=== PATIENT | male | born 1985 | race Caucasian/White ===

== ENCOUNTER 2021-02-17 19:41 | Emergency (ER) | payer MEDICAID, SELFPAY ==
--- NOTE | 2021-02-17 19:47 | XRR_ITS ---
PROCEDURE INFORMATION: Exam: XR Right Ankle Exam date and time: 02/17/2021 7:47 PM Age: 36 years old Clinical indication: Pain; Ankle; Right; Additional info: Injury TECHNIQUE: Imaging protocol: XR Right ankle. Views: 3 or more views. COMPARISON: No relevant prior studies available. FINDINGS: Bones/joints: There is a nondisplaced fracture of the medial malleolus. No additional acute fracture of the tibial and no acute fracture of the fibula. The ankle mortise is intact. No dislocation. Soft tissues: There is soft tissue edema. XR/XR ankle RT min 3V* 03900 IMPRESSION: There is a nondisplaced fracture of the medial malleolus.
[2021-02-17 20:27] VITALS: BP 137/85; PULSE 77; RESP 16; TEMP 37; O2SAT 98
--- NOTE | 2021-02-17 21:20 | ED_ITS ---
HPI - Extremity Problem General: Chief complaint: Extremity Injury, Lower Stated complaint: Injury Rt Tamika Time Seen by Provider: 02/17/21 20:17 History of Present Illness: HPI Narrative: Patient comes in with injury to the left ankle this evening. Patient was climbing in a tree and went to get out of the tree and fell coming down awkwardly on his right foot and ankle. Patient reports pain and discomfort to the ankle. Review of Systems General: Reports: 10 or more systems reviewed and unremarkable except in HPI and below Musc: Reports: joint pain and other (Right ankle injury) Physical Exam Const: COMMON NORMALS: patient oriented x3 GENERAL APPEARANCE: cooperative HENMT: COMMON NORMALS: normocephalic and Normal external nose present HEAD & SCALP: normocephalic NOSE: Normal external nose present Eye: GENERAL EYE: appearance normal, both eyes and all related structures Neck/C-Spine: COMMON NORMALS: full ROM Chest: COMMONS NORMALS: normal inspection of the chest Resp: COMMON NORMALS: normal respiratory effort EFFORT & INSPECTION: Yes able to speak in complete sentences Cardio: COMMON NORMALS: regular rate and regular rhythm RATE: regular rate RHYTHM: regular rhythm GI: COMMON NORMALS: non-tender Back/Pelvis: COMMON NORMALS: thoracic and lumbar spine normal to inspection Extremity: NARRATIVE EXTREMITY EXAM: Tenderness is noted to the medial aspect of the right ankle. RIGHT LOWER EXTREMITY: Yes foot & digits Right ankle: Yes inspection (Swelling) and Yes palpation (Medial ankle) Neuro: COMMON NORMALS: patient oriented x3 and moves all extremities Psych: COMMON NORMALS: mental status grossly normal and cooperative Skin: COMMON NORMALS: no rashes or lesions noted GENERAL SKIN EXAM: no rashes or lesions noted Course Vital Signs: Vital signs: Vital Signs Temperature 98.6 F 02/17/21 20:27 Pulse Rate 77 02/17/21 20:27 Respiratory Rate 16 02/17/21 20:27 Blood Pressure 137/85 02/17/21 20:27 Pulse Oximetry 98 02/17/21 20:27 MDM - Extremity (Nontraumatic) MDM Narrative: Medical decision making narrative: 36-year-old male patient comes in for injury to the right ankle. On exam he has swelling and tenderness to the medial aspect of the right ankle. Distal pulses and sensation are intact. Palpation of the lumbar and thoracic spine indicated no pain. Patient moves all other extremities well without difficulty. No signs of other injury was noted. Differential diagnosis includes ankle fracture, contusion, sprain. X-ray noted a medial malleus fracture of the distal tibia. Fracture was called nondisplaced. Patient was placed in a PML splint and placed nonweightbearing with crutches. Case management was requested to arrange for patient to follow- up with orthopedic/podiatry for further treatment. Patient was written for a short course of hydrocodone to help with breakthrough pain. No current prescriptions were noted in the medical record. Patient reported understanding of care plan and need for follow-up or return to the ER. Discharge Plan Discharge Patient Disposition: Home Clinical Impression: Fracture of medial malleolus of right tibia Qualifiers: Encounter type: initial encounter Fracture type: closed Fracture alignment: nondisplaced Qualified Code(s): S82.54XA - Nondisplaced fracture of medial malleolus of right tibia, initial encounter for closed fracture Condition: Stable Prescriptions: New hydrocodone-acetaminophen 5-325 mg tablet 1 tab PO Q6H PRN (Reason: pain (scale score 7-10)) Qty: 7 RF: 0 Discharge Orders: Discharge ED (Routine); Ordered 02/17/21 Ordered By: Mik Hebert Discharge Diet: Usual diet Discharge Activity: Limit activity as instructed Patient Instructions: Ankle Fracture (DC), Opioid Safety Activity Restrictions/Additional Instructions: Keep splint clean and dry. Use acetaminophen and ibuprofen to control pain. Use hydrocodone for uncontrolled pain. Drink plenty of water with medication. Use crutches to maintain no weightbearing on the ankle. Follow-up with primary care for further instruction. Case management will contact you regarding orthopedic follow-up appointment. Return to the ER for new concerns. Coding Level of Care Code ED Slot Machine Key Person for Norman Wood
[2021-02-17] MEDS: HYDROcodone-acetaminophen 5-325 mg Tablet 1 TAB PO (21:21)
--- NOTE | 2021-02-18 09:02 | DCPLANNER ---
area manager had message to schedule a follow up appointment for patient with ortho. area manager called the ortho clinic, spoke with Leora, gave clinic patients information. area manager was told that patients information would be printed and reviewed. Clinic will call patient with appointment information.
--- NOTE | 2021-02-20 06:59 | DCPLANNER ---
Patient has a follow up appointment scheduled for Saturday, February 20, 2021 at 11:[address] Alonzo. Clinic will call patient with appointment information.
--- NOTE | 2021-02-24 08:00 | DCPLANNER ---
Patient had a follow up appointment scheduled for 02.20.[address] Alonzo at [facility] - patient did attend appointment.
== END 2021-02-17 21:35 | disposition home or self-care (01) ==
PROVIDERS: Emergency Provider Nurse Practitioner Family
DX: S82.54XA Nondisplaced fracture of medial malleolus of right tibia, initial encounter for closed fracture (principal); W14.XXXA Fall from tree, initial encounter
CPT/HCPCS: 29515; 73610; 99283

== ENCOUNTER 2021-02-20 12:35 | Outpatient (CLI) | payer MEDICAID, SELFPAY | END 2021-02-20 12:36 | disposition home or self-care (01) | LOC: SPT 12:37 | PROVIDERS: Visit Provider Podiatrist Foot & Ankle Surgery | DX: Z46.89 Encounter for fitting and adjustment of other specified devices (principal); S82.54 Nondisplaced fracture of medial malleolus of right tibia; X58.XXXS Exposure to other specified factors, sequela | CPT/HCPCS: 73610; 73630; 97760; L4361 ==

== ENCOUNTER 2021-02-22 00:59 | Emergency (ER) | payer MEDICAID, SELFPAY ==
[2021-02-22 01:07] VITALS: BP 144/95; PULSE 99; RESP 20; TEMP 36.4; O2SAT 96; BMI 23.3
--- NOTE | 2021-02-22 01:17 | XRR_ITS ---
PROCEDURE INFORMATION: Exam: XR Chest Exam date and time: 02/22/2021 1:17 AM Age: 36 years old Clinical indication: Dyspnea; Additional info: SOB TECHNIQUE: Imaging protocol: XR of the chest. Views: 1 view. COMPARISON: No relevant prior studies available. FINDINGS: Lungs: Unremarkable. No consolidation. Pleural spaces: Unremarkable. No pleural effusion. No pneumothorax. Heart/Mediastinum: Unremarkable. No cardiomegaly. Bones/joints: Unremarkable. Soft tissues: There are bilateral nodular shadows overlying the mid lung zones, likely nipple shadows. This could be confirmed with repeat examination with nipple markers if clinically desired. XR/XR chest 1V portable [id number] IMPRESSION: 1. There are bilateral nodular shadows overlying the mid lung zones, likely nipple shadows. This could be confirmed with repeat examination with nipple markers if clinically desired. 2. Otherwise, negative examination.
--- NOTE | 2021-02-22 01:17 | ECG_ITS ---
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
--- NOTE | 2021-02-22 01:28 | W.ED.SOB ---
HPI - SOB/Dyspnea General: Chief Complaint: Shortness of Breath/Dyspnea Stated Complaint: TROUBLE BREATHING Time Seen by Provider: 02/22/21 01:01 Source: patient Mode of arrival: ambulatory Limitations: no limitations History of Present Illness: HPI Narrative: 36-year-old male who states that he has been having shortness of breath of last 3 to 4 days with getting much worse today. States he had a cough low-grade fever along with wheezing as well. He states that he fractured his ankle 5 days ago and is scheduled surgery next Tuesday he denies any chest pain denies any worsening improving factors. Does have wheezing here no severe distress noted. Associated symptoms: Deny abdominal pain, chest pain, fever(s), nausea or vomiting Review of Systems Const: Denies: fever(s), chills, body aches or change in appetite Eyes: Denies: blurry vision or eye discomfort ENMT: Denies: throat pain or dental pain Card: Denies: chest pain Resp: Reports: dyspnea, non-productive cough and wheezing GI: Denies: abdominal pain, nausea, vomiting or diarrhea : Denies: dysuria Musc: Denies: neck pain or back pain Skin/Breast: Denies: rash Neuro: Denies: headache(s) Psych: Denies: depression Cade/Lymph: Denies: easy bruising All/Imm: Denies: urticaria PFSH ED PFSH: Social History Smoking and tobacco status: current every day smoker Alcohol intake: never Physical Exam Const: COMMON NORMALS: no acute distress, patient oriented x3 and healthy appearing HENMT: COMMON NORMALS: normocephalic and atraumatic HEAD & SCALP: normocephalic and atraumatic Eye: COMMON NORMALS: Equal, round and reactive pupils present and EOMs intact bilaterally PUPIL: Yes Equal, round and reactive pupils present Neck/C-Spine: COMMON NORMALS: full ROM and supple Chest: COMMONS NORMALS: normal inspection of the chest and normal palpation of entire chest wall Resp: COMMON NORMALS: normal respiratory effort, No retractions and No use of accessory muscles AUSCULTATION: wheezes Cardio: COMMON NORMALS: regular rate, regular rhythm and No murmurs present (Cardio) RATE: regular rate RHYTHM: regular rhythm GI: COMMON NORMALS: Normal to inspection, nondistended, normoactive bowel sounds present, Soft to palpation, non-tender and no masses PALPATION: Yes Soft to palpation Extremity: COMMON NORMALS: normal to inspection and full ROM Neuro: COMMON NORMALS: patient oriented x3, moves all extremities and no focal motor deficits Psych: COMMON NORMALS: mental status grossly normal, Normal thought process present and cooperative THOUGHT PROCESS: Normal thought process present Skin: COMMON NORMALS: no rashes or lesions noted and no wounds GENERAL SKIN EXAM: no rashes or lesions noted Course Vital Signs: Vital signs: Vital Signs Temperature 97.5 F L 02/22/21 01:07 Pulse Rate 99 02/22/21 01:07 Respiratory Rate 20 H 02/22/21 01:07 Blood Pressure 144/95 02/22/21 01:07 Pulse Oximetry 96 02/22/21 01:07 MDM - SOB/Dyspnea MDM Narrative: Medical decision making narrative: Patient presents here with cough congestion likely bronchitis CT shows a possible pneumonia we will place him on steroids albuterol inhaler along with antibiotic he is well-appearing here in no distress he is to follow-up PCP and return if worsening. Lab Data: Labs: Lab Results 02/22/21 02/22/21 02/22/21 01:38 01:38 01:38 WBC 12.8 10^3/uL H 10 ^3/uL (4.0-10.0) RBC 4.63 10^6/uL 10^6 /uL (4.1-5.3) Hgb 14.8 g/dL g/dL (11.7-16.6) Hct 42.2 % % (42.0-52.0) MCV 91.1 fl fl (80-94) MCH 32.0 pg pg (28.0-34.0) MCHC 35.1 g/dL g/dL (30.0-36.0) RDW 11.5 % L % (12.1-15.1) Plt Count 300 10^3/cmm 10^3 /cmm (130-400) MPV 9.5 fL fL (7.4-10.4) Neut % (Auto) 65.0 % % Lymph % (Auto) 19.6 % % [place] % (Auto) 8.8 % % Eos % (Auto) 5.6 % % Baso % (Auto) 0.5 % % Neut # (Auto) 8.34 10^3/uL H 10 ^3/uL (1.8-7.7) Lymph # (Auto) 2.5 10^3/uL 10^3/ uL (0.8-4.8) [place] # (Auto) 1.1 10^3/uL H 10^ 3/uL (0.2-0.9) Eos # (Auto) 0.7 10^3/uL 10^3/ uL (0.0-0.8) Baso # (Auto) 0.1 10^3/uL 10^3/ uL (0.0-0.1) Nucleated RBC % (a uto) 0 % % Nucleated RBCs # 0.0 /100WBC /100W BC D-Dimer 0.78 ug/mIFEU H u g/mIFEU (0-0.59) Sodium 137 mmol/L mmol/L (136-145) Potassium 3.8 mmol/L mmol/L (3.5-5.1) Chloride 101 mmol/L mmol/L (98-107) Carbon Dioxide 23 mmol/L mmol/L (22-29) Anion Gap 16.8 (5-19) BUN 13 mg/dL mg/dL (6-20) Creatinine 0.8 mg/dL mg/dL (0.7-1.2) GFR Calculation 108.2 mL/min mL/m in (90-130) Glucose 93 mg/dL mg/dL (65-115) Calculated Osmolal ity 284 mOsm/kg L mOs m/kg (285-295) Calcium 8.8 mg/dL mg/dL (8.5-10.5) Total Bilirubin 0.4 mg/dL mg/dL (0.15-1.2) AST 39 U/L U/L (0-40) ALT 36 U/L U/L (0-41) Alkaline Phosphata se 93 IU/L IU/L (40-130) NT-Pro-B Natriuret Pep 37 pg/mL pg/mL (0-125) Total Protein 7.5 g/dL g/dL (6.6-8.7) Albumin 4.5 g/dL g/dL (3.5-5.2) Globulin 3.0 g/dL g/dL (1.3-4.6) Imaging Data^: CT Chest: Attestation: I personally reviewed and interpreted this imaging study as follows: Radiologist's impression: IMPRESSION: 1. No pulmonary embolism. 2. No aortic dissection. 3. There are foci of ground-glass opacity in the right middle lobe which may be secondary to atelectasis or pneumonia. EKG Data^: EKG 1: Attestation: I personally reviewed and interpreted this EKG as follows: EKG Interpretation Date: 02/22/21 EKG interpretation time: 01:35 Interpretation: nsr hr [address] or t wave abnormalities qrs 88 qtc 393 Discharge Plan Discharge Patient Disposition: Home Clinical Impression: Bronchitis Condition: Stable Prescriptions: New prednisone 50 mg tablet 50 mg PO DAILY Qty: 5 RF: 0 albuterol sulfate 90 mcg/actuation HFA aerosol inhaler 2 inh INHALATION Q6H PRN (Reason: shortness of breath or wheezing) Qty: 8 RF: 0 doxycycline hyclate 100 mg tablet 100 mg PO BID 7 Days Qty: 14 RF: 0 No Action hydrocodone-acetaminophen 5-325 mg tablet 1 tab PO Q6H PRN (Reason: pain) 7 Days Qty: 28 RF: 0 (DME) CAM WALKER See Rx Instructions .ROUTE .MEDSUPPLY Qty: 1 RF: 0 hydrocodone-acetaminophen 5-325 mg tablet 1 tab PO Q6H PRN (Reason: pain (scale score 7-10)) Qty: 7 RF: 0 Discharge Orders: Discharge ED (Routine); Ordered 02/22/21 Ordered By: Vicki Roland Discharge Diet: Advance as tolerated Discharge Activity: Resume usual activity Patient Instructions: Acute Bronchitis (ED) Coding Level of Care Code ED Brand Development Manager for Chg Fwd Exam Comprehensive
[2021-02-22] MEDS: ipratropium-albuterol 3 mL Neb INHALATION (01:33)
[2021-02-22 02:06] LABS: Basophils # 0.1 10^3/uL (0.0-0.1); Basophils % 0.5 %; Eosinophils # 0.7 10^3/uL (0.0-0.8); Eosinophils % 5.6 %; Hematocrit 42.2 % (42.0-52.0); Hemoglobin 14.8 g/dL (11.7-16.6); Lymphocytes # 2.5 10^3/uL (0.8-4.8); Lymphocytes % 19.6 %; Mean Corpuscular HGB Conc 35.1 g/dL (30.0-36.0); Mean Corpuscular Volume 91.1 fl (80-94); Mean Platelet Volume 9.5 fL (7.4-10.4); Monocytes # 1.1 10^3/uL (0.2-0.9); Monocytes % 8.8 %; Neutrophils # 8.34 10^3/uL (1.8-7.7); Nucleated Red Blood Cells % 0 %; Platelet Count 300 10^3/cmm (130-400); Red Blood Count 4.63 10^6/uL (4.1-5.3); Red Cell Distribution Width 11.5 % (12.1-15.1); White Blood Count 12.8 10^3/uL (4.0-10.0)
[2021-02-22 02:31] LABS: D Dimer 0.78 ug/mIFEU (0-0.59)
[2021-02-22 02:41] LABS: Alanine Aminotransferase 36 U/L (0-41); Albumin Level 4.5 g/dL (3.5-5.2); Alkaline Phosphatase 93 IU/L (40-130); Anion Gap 16.8 (5-19); Aspartate Amino Transferase 39 U/L (0-40); Blood Urea Nitrogen 13 mg/dL (6-20); Calcium 8.8 mg/dL (8.5-10.5); Carbon Dioxide 23 mmol/L (22-29); Chloride 101 mmol/L (98-107); Glomerular Filtration Rate 108.2 mL/min (90-130); Glucose 93 mg/dL (65-115); NT Pro B Type Natriuretic Pept 37 pg/mL (0-125); Osmolality Calculated 284 mOsm/kg (285-295); Potassium 3.8 mmol/L (3.5-5.1); Sodium 137 mmol/L (136-145); Total Bilirubin 0.4 mg/dL (0.15-1.2); Total Protein 7.5 g/dL (6.6-8.7)
--- NOTE | 2021-02-22 02:42 | CTR_ITS ---
PROCEDURE INFORMATION: Exam: CTA Chest With Contrast Exam date and time: 02/22/2021 2:42 AM Age: 36 years old Clinical indication: Abnormal findings; Abnormal diagnostic tests; Elevated d-dimer; Dyspnea; Additional info: SOB TECHNIQUE: Imaging protocol: Computed tomographic angiography of the chest with contrast. 3D rendering (Not supervised by radiologist): MIP and/or 3D reconstructed images were created by the technologist. Radiation optimization: All CT scans at this facility use at least one of these dose optimization techniques: automated exposure control; mA and/or kV adjustment per patient size (includes targeted exams where dose is matched to clinical indication); or iterative reconstruction. Contrast material: OMNI 350; Contrast volume: 95 ml; Contrast route: INTRAVENOUS (IV); COMPARISON: CR (CHEST, ) 02/22/2021 1:34 AM RADIATION DOSE METRICS: Total DLP (mGy-cm): 548.21 FINDINGS: Pulmonary arteries: No pulmonary embolism. Aorta: No aortic dissection. Lungs: There are foci of ground-glass opacity in the right middle lobe which may be secondary to atelectasis or pneumonia. Pleural spaces: Unremarkable. No pneumothorax. No pleural effusion. Heart: Unremarkable. No cardiomegaly. No pericardial effusion. Lymph nodes: Unremarkable. No enlarged lymph nodes. Bones/joints: Unremarkable. No acute fracture. Soft tissues: Unremarkable. CT/CT angio chest PE protcl [id number] IMPRESSION: 1. No pulmonary embolism. 2. No aortic dissection. 3. There are foci of ground-glass opacity in the right middle lobe which may be secondary to atelectasis or pneumonia.
[2021-02-22] MEDS: iohexol 350 mg/mL 100 mL Btl IV (03:12)
[2021-02-23 14:32] LABS: Quest SARS-CoV-2 RNA NOT DETECTED (NOT DETECTED)
== END 2021-02-22 03:50 | disposition home or self-care (01) ==
PROVIDERS: Emergency Provider Emergency Medicine
DX: J40 Bronchitis, not specified as acute or chronic (principal); F17.210 Nicotine dependence, cigarettes, uncomplicated; Z20.822 Contact with and (suspected) exposure to COVID-19
CPT/HCPCS: 71045; 71275; 80053; 83880; 85025; 85378; 87635; 93005; 94640; 96374; 99284; J2930; Q9967

== ENCOUNTER → 2021-03-03 15:15 | Outpatient (BNVA) | payer OTHER, SELFPAY | PROVIDERS: Visit Provider Podiatrist Foot & Ankle Surgery | DX: Z20.822 Contact with and (suspected) exposure to COVID-19 (principal); Z01.812 Encounter for preprocedural laboratory examination | CPT/HCPCS: 87635 ==

== ENCOUNTER 2021-03-13 08:08 | Day surgery (SDC) | payer MEDICAID, SELFPAY ==
[2021-03-05 14:30] VITALS: BMI 23.3
[2021-03-13] VITALS (7 sets, daily range): BP systolic 99–120; BP diastolic 58–70; PULSE 52–69; RESP 14–18; TEMP 36.3–36.4; O2SAT 96–99
--- NOTE | 2021-03-13 | SCC_ITS ---
Procedure done: Open reduction internal fixation right medial malleolus fracture 33 seconds of fluoroscopic guidance, for a cumulative dose of 0.8 mGy, was provided to Dr. Alonzo by the radiology department. C-arm images of the RIGHT ankle were saved for the patient's permanent record. [facility]
[2021-03-13] MEDS: sodium chloride 0.9% 1,000 ML 30 ML IV (08:30)
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
--- NOTE | 2021-03-13 09:28 | ANES.PROC ---
Anesthesia Procedures Procedure/Date: 03/13/21 Nerve Block ^: Nerve Block 1: Main Anesthesia: general anesthesia Time Out Performed: Yes Consent: requested by attending/covering physician, from patient, risks and benefits reviewed and patient agrees to proceed Nerve block location: popliteal Anesthesia monitors applied: pulse oximetry, EKG and BP cuff Nerve block position: supine Anesthetic Used: ropivicaine 0.5% (30) and with decadron (4 mg) Nerve Stimulator Used?: No Interscalene/Femoral BLK: 4 stimuplex 21 g needle used for position and inplane approach, visualize local anesthetic spread and no vascular puncture identified Injection: neg aspiration of heme Patient Tolerated Procedure: well and no complications Complications: none
--- NOTE | 2021-03-13 11:58 | W.PM.OPSUD ---
Surgery/Procedure H&P Update DATE OF PROCEDURE: March 13, 2021 DATE H&P PERFORMED: 02/20/21 CHANGES TO PREVIOUS DOCUMENTATION: none PREOP DIAGNOSIS: Right medial malleolus fracture PLANNED PROCEDURE: Operation Date: 03/13/21 10:15 Proposed Procedures p ORIF Right Medial Malleolus 60523 S82.54(Right) - Nestor Alonzo DPM
[2021-03-13] MEDS: lidocaine 1% INJ 20 mL SUBCUT (12:07)
--- NOTE | 2021-03-13 12:40 | XR_ITS ---
WS: [id number] XR ankle RT min 3V* [id number] REASON FOR EXAM: post op FINDINGS: Long screw fixation of oblique medial malleolar fracture. Normal ankle joint spaces. Surgical appliances and fracture fragments in proper position and alignment. XR/XR ankle RT min 3V* [id number] IMPRESSION: Fixation of right ankle fracture without abnormality.
--- NOTE | 2021-03-13 12:41 | PM.OP ---
Operative Report Date of procedure: March 13, 2021 Pre-op diagnosis: Right medial malleolus fracture Post-op diagnosis: Same Post-op findings: None Procedure done: Open reduction internal fixation right medial malleolus fracture Implants: Lewis 4.0 millimeter screw times two 4-0 nylon Specimens removed/disposition: None Pathology: None Surgeon: Nestor Alonzo D.P.M. Medical Office Representative: Mohinder Dial Ashley Estimated blood loss: 5 21 IV fluids: 0 Urine output: 0 Complications: None Findings: None Brief History: Sustained a displaced medial malleolus fracture right ankle recommended ORIF. Risks include pain, bleeding, numbness, infection, hardware rotation, hardware failure, delayed union, malunion, nonunion, high likelihood of posttraumatic arthritis of the right ankle and need for possible hardware removal. Patient is agreeable wishes to proceed. Has been n.p.o. since midnight. Informed consent signed by myself and patient. No guarantees written, expressed or implied. Procedure: Under mild sedation the patient was brought to the operating room and remained on the gurney in supine position. A timeout was performed. Anesthesia was then administered by the anesthesia service. Local anesthesia injected by myself consisting of 10 cc of one-to-one mixture 1% lidocaine and 0.5% Marcaine plain and a right medial ankle block fashion. Popliteal block performed preoperatively per anesthesia. Well-padded pneumatic tourniquet applied to the right high calf. Right lower extremity was then scrubbed, prepped and draped utilizing normal aseptic technique. Right foot was elevated and the tourniquet inflated to 250 mmHg. Attention was directed to the medial ankle where the medial malleolus was palpated, utilizing standard AO technique parallel screw x2 Lewis headed 4.0 mm partially-threaded cannulated screw were utilized to fixate and compress the fracture site perpendicular to its orientation with excellent bony apposition and compression noted. Intraoperative fluoroscopy in all 3 planes utilized to confirm the ankle mortise was not violated and the ankle mortise remained congruent. The incision was flushed with saline solution and closed with 4-0 nylon. Incision was then dressed with Adaptic, sterile 4 x 4, Kerlix and Jonathan wrap followed by application of cam boot. Tourniquet was deflated and a prompt hyperemic response was noted to the distal digits of the right foot. Patient tolerated the procedure and anesthesia well and was transferred to the PACU with vital signs stable vascular status intact. Following a period of postoperative monitoring he will be discharged home is to remain strict nonweightbearing to the right lower extremity and elevate while resting.
== END 2021-03-13 14:10 | disposition home or self-care (01) ==
PROVIDERS: Visit Provider Podiatrist Foot & Ankle Surgery
PROC: (CPT 27766; principal; 2021-03-13 10:15)
DX: S82.51XA Displaced fracture of medial malleolus of right tibia, initial encounter for closed fracture (principal); X58.XXXA Exposure to other specified factors, initial encounter; Z86.16 Personal history of COVID-19; F17.210 Nicotine dependence, cigarettes, uncomplicated
CPT/HCPCS: 27766; 64450; 73610; 76000; 76942; C1713; J0690; J1100; J2250; J2795; J3010; J3490; J7030

== ENCOUNTER → 2021-03-26 15:02 | Outpatient (BNVA) | payer MEDICAID, SELFPAY | PROVIDERS: Visit Provider Podiatrist Foot & Ankle Surgery | DX: S82.51XD Displaced fracture of medial malleolus of right tibia, subsequent encounter for closed fracture with routine healing (principal); X58.XXXD Exposure to other specified factors, subsequent encounter; Z47.89 Encounter for other orthopedic aftercare | CPT/HCPCS: 73610 ==

== ENCOUNTER → 2021-04-09 15:06 | Outpatient (BNVA) | payer MEDICAID, SELFPAY | PROVIDERS: Visit Provider Podiatrist Foot & Ankle Surgery | DX: Z47.89 Encounter for other orthopedic aftercare (principal) | CPT/HCPCS: 73610 ==

== ENCOUNTER → 2021-04-23 13:06 | Outpatient (BNVA) | payer MEDICAID, SELFPAY | PROVIDERS: Visit Provider Podiatrist Foot & Ankle Surgery | DX: Z47.89 Encounter for other orthopedic aftercare (principal); S82.54XD Nondisplaced fracture of medial malleolus of right tibia, subsequent encounter for closed fracture with routine healing; X58.XXXD Exposure to other specified factors, subsequent encounter | CPT/HCPCS: 73610 ==

== ENCOUNTER 2021-04-23 14:39 | Outpatient (CLI) | payer MEDICAID, SELFPAY | END 2021-04-23 14:40 | disposition home or self-care (01) | LOC: SPT 14:40 | PROVIDERS: Visit Provider Podiatrist Foot & Ankle Surgery | DX: Z46.89 Encounter for fitting and adjustment of other specified devices (principal); S82.54XD Nondisplaced fracture of medial malleolus of right tibia, subsequent encounter for closed fracture with routine healing; X58.XXXD Exposure to other specified factors, subsequent encounter | CPT/HCPCS: 97760; L1902 ==

== ENCOUNTER → 2021-05-25 08:23 | Outpatient (BNVA) | payer MEDICAID, SELFPAY | PROVIDERS: Visit Provider Podiatrist Foot & Ankle Surgery | DX: S82.54XD Nondisplaced fracture of medial malleolus of right tibia, subsequent encounter for closed fracture with routine healing (principal); X58.XXXD Exposure to other specified factors, subsequent encounter | CPT/HCPCS: 73610 ==